=== PATIENT | female | born 1980 | race Caucasian/White ===

== ENCOUNTER 2018-07-06 01:04 | Emergency (ER) | payer BC ==
[~2018-07-06] VITALS: Ht 165.1 cm; Wt 76.2 kg
[~2018-07-06 01:04] MED LIST: ALEVE220 M1 PO; BENTYL10 MG PO; CELEBREX 200 M200 M1 PO; HYDROCODONE-AP1 EAC6 PO; NEURONTIN600 MG; NORCO 5-325 TA1 EACH PO; OMEPRAZOLE40 MG PO; PREDNISONE 10 M10 MG PO; ROBAXIN 750 MG750 M1 PO; ULTRAM 50MG TAB50 MG; VALIUM5 MG PO; ZOFRAN ODT4 MG PO
[2018-07-06] MEDS ORDERED: NORTRIPTYLINE H10 M1 PO (01:17)
[2018-07-06] MEDS ORDERED: FOLGARD TABLET1 EAC1 PO (01:17)
[2018-07-06] MEDS ORDERED: RESTORIL15 MG PO (01:17)
[2018-07-06 02:10] LABS: ABSOLUTE BASOPHILS 0.1 thou/uL (0.0-0.2); ABSOLUTE EOSINOPHILS 0.3 thou/uL (0.0-0.7); ABSOLUTE LYMPHOCYTES 2.1 thou/uL (0.8-5.3); ABSOLUTE MONOCYTES 0.5 thou/uL (0.0-1.2); ABSOLUTE NEUTROPHILS 4.4 thou/uL (1.6-8.1); BASOPHILS 0.7 %; EOSINOPHILS 4.2 %; HEMATOCRIT 37.1 % (37.0-47.0); HEMOGLOBIN 12.8 gm/dL (12.0-15.0); LYMPHOCYTES 28.1 %; MCH 31.1 pg (26.0-34.0); MCHC 34.4 g/dL (28.0-37.0); MCV 90.4 fL (80.0-100.0); MONOCYTES 7.3 %; MPV 7.5 fl. (7.2-11.1); NUCLEATED RBCS 0 /100WBC; PLATELET COUNT* 229 thou/uL (150-400); POLYS 59.7 %; RBC 4.11 mil/uL (4.20-5.00); RDW-CV 12.6 % (10.5-14.5); WBC 7.4 thou/uL (4.0-11.0)
[2018-07-06 02:20] LABS: CALCIUM 8.8 mg/dL (8.5-10.1); CREATININE 0.9 mg/dL (0.6-1.3)
[2018-07-06 02:32] LABS: ALBUMIN 3.7 g/dL (3.4-5.0); TOTAL BILIRUBIN 0.3 mg/dL (<0.1-1.0); TOTAL PROTEIN 6.5 g/dL (6.4-8.2)
[2018-07-06] MEDS ORDERED: ZOFRAN ODT4 MG PO (04:48)
[2018-07-06] MEDS ORDERED: BUTALB-APAP-CA1 EACH PO (04:48)
[2018-07-06 04:55] VITALS: BP 117/58
[2018-07-06 05:34] LABS: INFLUENZA A ANTIGEN None Detected (None Detect); INFLUENZA B ANTIGEN None Detected (None Detect)
== END 2018-07-06 04:56 | disposition home or self-care (01) ==
LOC: M.ERS 01:04
PROVIDERS: Personal Emergency Response Attendant
DX: R51 Headache (principal); M54.9 Dorsalgia, unspecified; G89.29 Other chronic pain; Z90.49 Acquired absence of other specified parts of digestive tract

== ENCOUNTER 2018-07-06 16:17 | Inpatient (IN) | payer BC ==
[~2018-07-06] VITALS: Ht 165.1 cm; Wt 75.7 kg
[~2018-07-06 16:17] MED LIST changes: +BUTALB-APAP-CA1 EACH PO; +FOLGARD TABLET1 EAC1 PO; +NORTRIPTYLINE H10 M1 PO; +RESTORIL15 MG PO
[2018-07-06 16:28] VITALS: BP 120/76
[2018-07-06 17:09] LABS: ABSOLUTE LYMPHOCYTES 1.9 thou/uL (0.8-5.3); ABSOLUTE MONOCYTES 0.8 thou/uL (0.0-1.2); ABSOLUTE NEUTROPHILS 6.5 thou/uL (1.6-8.1); BASOPHILS 0.5 %; EOSINOPHILS 0.3 %; HEMATOCRIT 38.4 % (37.0-47.0); HEMOGLOBIN 13.2 gm/dL (12.0-15.0); LYMPHOCYTES 20.3 %; MCH 31.5 pg (26.0-34.0); MCHC 34.5 g/dL (28.0-37.0); MCV 91.3 fL (80.0-100.0); MONOCYTES 8.2 %; MPV 7.3 fl. (7.2-11.1); NUCLEATED RBCS 0 /100WBC; PLATELET COUNT* 265 thou/uL (150-400); POLYS 70.7 %; RBC 4.21 mil/uL (4.20-5.00); RDW-CV 13.1 % (10.5-14.5); WBC 9.2 thou/uL (4.0-11.0)
[2018-07-06 17:16] LABS: CALCIUM 8.7 mg/dL (8.5-10.1); CREATININE 0.8 mg/dL (0.6-1.3); POTASSIUM 3.4 mmol/L (3.5-5.1)
[2018-07-06 19:31] LABS: VOLUME 15 ml
[2018-07-06 19:32] LABS: CSF CLARITY CLEAR; CSF COLOR COLORLESS; CSF LYMPHOCYTES 89 % (40-80); CSF POLYS 11 % (0-6); CSF RBC 5 /mm3; CSF WBC 508 /mm3 (0-10)
[2018-07-06 20:31] LABS: BE -2.3 mmol/L (-2 to +3); HCO3 22.8 mmol/L (22.0-26.0); PCO2 40.4 mmHg (35.0-45.0); PO2 69.6 mmHg (75.0-100.0); pH 7.369 (7.340-7.450)
[2018-07-06 21:13] VITALS: BP 117/76
[2018-07-06 23:23] LABS: URINE BILIRUBIN NEGATIVE (Negative); URINE BLOOD 1+ (Negative); URINE CLARITY CLEAR; URINE COLOR YELLOW; URINE GLUCOSE-RANDOM NEGATIVE (Negative); URINE KETONES NEGATIVE (Negative); URINE LEUKOCYTES-REFLEX NEGATIVE (Negative); URINE NITRITE-REFLEX NEGATIVE (Negative); URINE PROTEIN NEGATIVE (Negative); URINE SPECIFIC GRAVITY 1.015 (1.005-1.030); URINE UROBILINOGEN 0.2 E.U./dl (0.2-1.0)
[2018-07-06 23:31] LABS: BACTERIA-REFLEX >30 Many /HPF (None Seen); CASTS None Seen /LPF (None Seen); CRYSTALS None Seen /LPF (None Seen); MUCUS 0-3 Light strn/LPF (None Seen); SQUAMOUS 4-10 Moderate /LPF (0-3); URINE RBC 3-10 Few /HPF (0-2); URINE WBC-REFLEX 6-15 Few /HPF (0-5)
[2018-07-07] VITALS: BP 110/69
[2018-07-07 08:00] VITALS: BP 106/74
[2018-07-07 15:43] VITALS: BP 119/78
[2018-07-07 20:00] VITALS: BP 111/79
[2018-07-08 04:00] VITALS: BP 101/69
[2018-07-08 08:00] VITALS: BP 112/71
--- NOTE | 2018-07-08 09:23 | CON ---
[address] [address] CONSULTATION Name: RAND NAYAK Room: [address] IN M.R.#: [id number] Admission: 07/06/18 Attend Phys: Olamide Cheung MD Discharge: Date of : 76 Report #: [id number] THIS REPORT FOR: //name// CC: Olamide Campbell DATE OF SERVICE: 07/07/2018 INFECTIOUS DISEASE CONSULTATION ATTENDING PHYSICIAN: Dr. Cheung. REASON FOR EVALUATION: Meningitis. HISTORY OF PRESENT ILLNESS: Chart reviewed, patient examined. The patient is a 37-year-old without significant medical history, although had previous history of meningitis in her teens, had an onset of severe headache without any antecedent injury, really no inciting factors she is aware of. It is not clear if she had any fevers, became progressively worse, developed some nausea with emesis. On questioning, she denies any particular exposure history. During the evaluation, did undergo lumbar puncture, which showed elevated white count in the CSF of 508, it was clear and colorless. Differential showed 89% lymphocytes, 11% polys; protein was 144, glucose was 60. Gram stain and cultures pending of the CSF. Blood cultures sterile thus far. She is lucid at this point. She was empirically started on ceftriaxone, and acyclovir was added as well. ALLERGIES: None known. MEDICATIONS: Include ceftriaxone, acyclovir, pantoprazole, temazepam, p.r.n. analgesics and antiemetics. PAST MEDICAL HISTORY: As noted above, previous cholecystectomy, appendectomy, chronic back pain, neurostimulator. SOCIAL HISTORY: Nonsmoker, no ethanol. FAMILY HISTORY: Noncontributory. REVIEW OF SYSTEMS: As above. Denies any significant pulmonary or gastrointestinal related complaints at this point. PHYSICAL EXAMINATION: GENERAL: She appears fairly well-nourished. She is in mild to moderate distress. She is lucid. VITAL SIGNS: Temperature 99.3, pulse 94, respirations 21, [place] [id number] CONSULTATION Name: RAND NAYAK Mg Room: [address] IN [facility]#: [id number] Admission: 07/06/18 Attend Phys: Olamide Cheung MD Discharge: Date of : 76 Report #: [id number] 110/69. SKIN: Warm, dry, no rashes. HEENT: Otherwise, unremarkable. NECK: Generally supple. LUNGS: Clear breath sounds. HEART: Regular. Borderline tachycardic. I do not appreciate murmur. ABDOMEN: Soft, nontender, nondistended. There are no peritoneal signs. No peripheral evidence of any eruption. GENITOURINARY: Deferred. RECTAL: Deferred. LABORATORY DATA: Blood cultures sterile thus far. CSF pending. Urinalysis 6-15 white cells, greater than 30 bacteria. ABGs: pH 7.369, pCO2 of 40.4, pO2 of 69.6. Lactic acid 1.4. CBC: White count of 9.2, H and H 13.2 and 38.4, platelets of 265. Influenza antigen was negative. Electrolytes: Sodium 137, potassium 4.0, chloride 104, bicarbonate is 30, anion gap of 3, BUN and creatinine 11 and 0.9, glucose of 94. LFTs normal. Albumin of 3.7, total protein 6.5. Estimated GFR of 70. ASSESSMENT: Meningitis, likely aseptic, although the white count is fairly high, as is the protein, differential would again favor an aseptic etiology. We will continue empiric antimicrobial therapy. Await results. At this point, there is no evidence of toxicity. Discussed with the patient and family. <ELECTRONICALLY SIGNED> By: Gregor Ho MD 07/08/18 0923 [id number] Ho MD /nt
--- NOTE | 2018-07-08 14:25 | CON ---
[address] [address] CONSULTATION Name: RAND NAYAK Room: [address] IN .R.#: [id number] Admission: 07/06/18 Attend Phys: Olamide Cheung MD Discharge: Date of : 76 Report #: [id number] THIS REPORT FOR: //name// CC: Olmaide Campbell HISTORY OF PRESENT ILLNESS: The patient is a 37-year-old female who states that approximately 15 years ago she had viral meningitis and had exactly the same symptoms. She had headache, nausea and vomiting. The patient states that she had actually come to the Emergency Room on 2 separate occasions, the second time she had a spinal tap done and this demonstrated a white blood cell count of 508 with 89% lymphocytes. The total protein was 144. She was admitted for observation and given intravenous fluids. She was also started on ceftriaxone. The patient is now feeling better. She is not able to lie completely flat because she has back pain. At this point, she is feeling better than when she first came to the Emergency Room. PAST MEDICAL HISTORY: Chronic back pain, prior history of viral meningitis. PAST SURGICAL HISTORY: Cholecystectomy, appendectomy, tubal ligation, neurostimulator. MEDICATIONS: Omeprazole, nortriptyline 10 mg daily, temazepam 15 mg at bedtime. ALLERGIES: None. PHYSICAL EXAMINATION: VITAL SIGNS: Temperature 37.4, pulse rate 94, respiratory rate 21, blood pressure 110/69, bedside pulse oximetry 99% on room air. NEUROLOGIC: Cranial nerves 2-12 grossly intact. Motor exam demonstrated symmetrical movement of all 4 extremities. There was no evidence of dysmetria. Gait was not tested. LABORATORY DATA: White blood cell count 9.2, hemoglobin 13.2, hematocrit 38.4, platelet count 265,000. Spinal tap, white blood cell count 508, 89% neutrophils, glucose 60. Total protein 144. Chemistry: Sodium 138, potassium 3.4, chloride 105, carbon dioxide 27, BUN 7, creatinine 0.8, glucose 80. CT scan of the head negative. IMPRESSION AND PLAN: This patient has viral meningitis. She should continue IV fluids. She is receiving hydrocodone and ibuprofen in addition to morphine for pain. I would be cautious about the administration of morphine for headache. Since the patient has been here, she has received a total of 12 mg. If she continues to receive this much morphine, I may consider reducing the dose from 4 mg to 2 [place] [address] CONSULTATION Name: RAND NAYAK Room: [address]#: [id number] Admission: 07/06/18 Attend Phys: Olamide Cheung MD Discharge: Date of : 76 Report #: [id number] I thank you for your kind referral of the patient and will continue to follow her with you. <ELECTRONICALLY SIGNED> By: Damaris Luciano DO 07/08/18 1425 [id number] Luciano DO /nt
[2018-07-08 15:28] VITALS: BP 107/75
[2018-07-08 20:00] VITALS: BP 112/78
[2018-07-09 08:00] VITALS: BP 123/79
[2018-07-09 15:30] VITALS: BP 111/71
[2018-07-09 20:30] VITALS: BP 109/79
[2018-07-10 13:20] VITALS: BP 109/79
[2018-07-11] MEDS ORDERED: PERCOCET PO (21:49)
== END 2018-07-10 13:52 | disposition home or self-care (01) | DRG 98 ==
LOC: M.ERS 16:17 → M.TBA-ER 20:08 → M.2W 20:08
PROVIDERS: Emergency Medicine Emergency Medical Services; Personal Emergency Response Attendant; ADMIT Internal Medicine
PROC: 009U3ZX Drainage of Spinal Canal, Percutaneous Approach, Diagnostic (ICD-10-PCS; principal; 2018-07-06)
DX: G03.0 Nonpyogenic meningitis (principal); N39.0 Urinary tract infection, site not specified; A87.9 Viral meningitis, unspecified; G89.29 Other chronic pain; M54.9 Dorsalgia, unspecified; M54.5 Low back pain; H53.149 Visual discomfort, unspecified; Z53.29 Procedure and treatment not carried out because of patient's decision for other reasons; Z90.49 Acquired absence of other specified parts of digestive tract; Z79.899 Other long term (current) drug therapy

== ENCOUNTER 2018-07-11 20:29 | Emergency (ER) | payer BC ==
[~2018-07-11] VITALS: Ht 165.1 cm; Wt 76.2 kg
[2018-07-11 21:11] LABS: ABSOLUTE BASOPHILS 0.1 thou/uL (0.0-0.2); ABSOLUTE EOSINOPHILS 0.3 thou/uL (0.0-0.7); ABSOLUTE MONOCYTES 0.6 thou/uL (0.0-1.2); ABSOLUTE NEUTROPHILS 5.4 thou/uL (1.6-8.1); BASOPHILS 0.6 %; EOSINOPHILS 4.1 %; HEMATOCRIT 41.8 % (37.0-47.0); LYMPHOCYTES 24.2 %; MCH 31.1 pg (26.0-34.0); MCHC 34.1 g/dL (28.0-37.0); MCV 91.3 fL (80.0-100.0); MONOCYTES 7.4 %; MPV 7.5 fl. (7.2-11.1); NUCLEATED RBCS 0 /100WBC; POLYS 63.7 %; RBC 4.58 mil/uL (4.20-5.00); RDW-CV 12.9 % (10.5-14.5); WBC 8.4 thou/uL (4.0-11.0)
[2018-07-11 21:14] LABS: HEMOGLOBIN 14.3 gm/dL (12.0-15.0); PLATELET COUNT* 272 thou/uL (150-400)
[2018-07-11 21:16] LABS: CALCIUM 9.2 mg/dL (8.5-10.1); CREATININE 0.8 mg/dL (0.6-1.3); POTASSIUM 3.7 mmol/L (3.5-5.1)
[2018-07-11 21:20] LABS: ALBUMIN 3.8 g/dL (3.4-5.0); TOTAL BILIRUBIN 0.2 mg/dL (<0.1-1.0); TOTAL PROTEIN 7.4 g/dL (6.4-8.2)
[2018-07-11] MEDS ORDERED: PERCOCET PO (21:49)
[2018-07-11 22:18] VITALS: BP 118/88
== END 2018-07-11 22:21 | disposition home or self-care (01) ==
LOC: M.ERS 20:29
PROVIDERS: Emergency Medicine
DX: A87.9 Viral meningitis, unspecified (principal); G89.29 Other chronic pain; M54.9 Dorsalgia, unspecified; Z90.49 Acquired absence of other specified parts of digestive tract

== ENCOUNTER 2021-09-14 05:22 | Emergency (ER) | payer BC ==
[~2021-09-14] VITALS: Ht 165.1 cm; Wt 90.7 kg
[~2021-09-14 05:22] MED LIST changes: +PERCOCET PO
[2021-09-14] MEDS ORDERED: CELEXA 20 MG TA20 MG PO (05:33)
[2021-09-14 05:54] LABS: URINE BILIRUBIN NEGATIVE (Negative); URINE BLOOD NEGATIVE (Negative); URINE CLARITY CLEAR; URINE COLOR YELLOW; URINE GLUCOSE-RANDOM NEGATIVE (Negative); URINE KETONES NEGATIVE (Negative); URINE LEUKOCYTES-REFLEX NEGATIVE (Negative); URINE NITRITE-REFLEX NEGATIVE (Negative); URINE PROTEIN NEGATIVE (Negative); URINE SPECIFIC GRAVITY >= 1.030 (1.005-1.030); URINE UROBILINOGEN 0.2 E.U./dl (0.2-1.0)
[2021-09-14] MEDS ORDERED: TORADOL 10 MG T10 MG PO (06:37)
[2021-09-14] MEDS ORDERED: NORFLEX100 MG PO (06:37)
[2021-09-14 07:08] VITALS: BP 132/67
== END 2021-09-14 07:08 | disposition home or self-care (01) ==
LOC: M.ERS 05:22
PROVIDERS: Personal Emergency Response Attendant
DX: M54.59 Other low back pain (principal); G89.29 Other chronic pain; Z90.49 Acquired absence of other specified parts of digestive tract; Z98.51 Tubal ligation status; Z79.899 Other long term (current) drug therapy